=== PATIENT | male | born 1935 | race Caucasian/White ===

== ENCOUNTER 2022-03-22 13:45 | Emergency (ER) | payer MEDICARE, BC | END 2022-03-22 14:25 | disposition home or self-care (01) | LOC: BURERS 13:45 | DX: S41.112A Laceration without foreign body of left upper arm, initial encounter (principal); I48.91 Unspecified atrial fibrillation; I11.0 Hypertensive heart disease with heart failure; I50.9 Heart failure, unspecified; W19.XXXA Unspecified fall, initial encounter | CPT/HCPCS: 99282 ==